=== PATIENT | female | born 1975 | race African-American/Black ===

== ENCOUNTER 2016-06-28 19:16 | Emergency (ER) | payer OTHER ==
--- NOTE | ~2016-06-28 | CR63 ---
[facility] A Service of [facility] & [facility] RADIOLOGY TEXT RESULTS PATIENT: MILIND BRICEÑO LOCATION: [facility] : 77 UNIT #: [id number] AGE: [address]: Ahmet Abdi MD SEX: F ORDER DR: [id number] [facility] [address] [place], [place] [address] [id number] MR#: [id number] Acc #: [id number] NAME: MILIND BRICEÑO : 1975 SEX: F STUDY DATE/TIME: 06/28/2016 19:46 UNIT: [facility] ROOM: STUDY DESCRIPTION: CR Chest 2 View Attending Physician: Ahmet Abdi M.D. Ordering Physician: Ahmet Abdi M.D. MEDICAL IMAGING REPORT This report is preliminary unless electronic signature is present EXAM Chest PA and lateral 06/28/2016 HISTORY Cough, chest pain and chest congestion for 2 weeks. Benign essential hypertension. FINDINGS PA and lateral examination of the chest upright shows a good expansion of the parenchyma with a normal distribution of the pulmonary vascularity. There is no indication of congestion, effusion, infiltrate, tumor, or nodular density. The pleural reflections and diaphragmatic contours are normal. The cardiac silhouette and mediastinal anatomy is within normal limits. IMPRESSION Normal chest. Dictated by... Silvano Lewis M.D. THIS IS AN ELECTRONICALLY VERIFIED REPORT Silvano Lewis M.D. at 06/29/2016 2:40 PM KRT/pcl TD: 06/28/2016 22:27 JOB #: [id number] MEDICAL IMAGING REPORT COPY
[~2016-06-28 19:16] MED LIST: AFRIN3 ML NS; ALB/IPRATROPIUM/1 E1 INH; AMOXICILLIN500 M1 PO; ANTIVERT PO; ASPIRIN81 M2 PO; AUGMENTIN PO; BENZONATATE PO; DOXYCYCLINE HY100 M3 PO; FIORICET 50-321 EACH PO; FLONASE16 GM; GLUCOPHAGE500 M1 PO; HCTZ PO; HYDROXYZINE HCL25 M1 PO; IBUPROFEN800 MG PO; K-DUR20 ME1 PO; KEFLEX500 MG PO; LISINOPRIL10 MG PO; LORTAB 5/500 TA1 TA1 PO; MOTRIN400 M1 PO; PHENERGAN W/CO120 ML PO; PREDNISONE10 MG PO; SUDAFED30 M1 PO; ZANTAC150 MG PO; ZITHROMAX PO
[2016-06-28 20:15] LABS: INFLUENZA A NEG (NEG); INFLUENZA B NEG (NEG)
== END 2016-06-28 21:29 | disposition home or self-care (01) ==
LOC: CED 19:16
PROVIDERS: Emergency Medicine
DX: J06.9 Acute upper respiratory infection, unspecified (principal); I10 Essential (primary) hypertension
CPT/HCPCS: 71020; 87651; 87804; 87880; 99283

== ENCOUNTER 2016-08-14 05:45 | Emergency (ER) | payer OTHER ==
--- NOTE | ~2016-08-14 | CR72 ---
[facility] A Service of [facility] & [facility] RADIOLOGY TEXT RESULTS PATIENT: MILIND BRICEÑO LOCATION: [facility] : 77 UNIT #: [id number] AGE: [address]: Jennifer Hernandez APRN SEX: F ORDER DR: [id number] [facility] [address] [place], [place] [address] [id number] E MR#: [id number] Acc #: [id number] NAME: MILIND BRICEÑO : 1975 SEX: F STUDY DATE/TIME: 08/14/2016 5:30 UNIT: [facility] ROOM: STUDY DESCRIPTION: CR Chest Single View Portable Attending Physician: Jennifer Hrenandez A.P.R.N. Ordering Physician: William Goldberg M.D. Primary Care Physician: Primary Care Physician No MEDICAL IMAGING REPORT This report is preliminary unless electronic signature is present EXAM AP portable chest, 08/14/2016 HISTORY 41-year-old female in the ED complaining of 3-day history of chest pain and shortness of air. TECHNIQUE AP portable upright chest x-ray. FINDINGS Heart size and pulmonary vascularity are within normal limits. The lungs appear clear. No visible pulmonary infiltrate or pleural effusion. No change since 06/28/2016. IMPRESSION Negative chest. Dictated by... Pierre Carroll M.D. THIS IS AN ELECTRONICALLY VERIFIED REPORT Pierre Carroll M.D. at 08/14/2016 9:59 PM GISELA/jimmy TD: 08/14/2016 12:30 JOB #: [id number] MEDICAL IMAGING REPORT COPY
--- NOTE | ~2016-08-14 | EKG ---
PATIENT: MILIND BRICEÑO UNIT #: [id number] Ventricular Rate: 92 BPM Atrial Rate: 92 BPM P-R Interval: 148 ms QRS Duration: 82 ms Q-T Interval: 352 ms QTC Calculation(Bezet): 435 ms P [place]: 33 degrees Calculated R [place]: 10 degrees Calculated T [place]: 15 degrees Diagnosis Line: Normal sinus rhythm Diagnosis Line: Cannot rule out Anterior infarct , age Diagnosis Line: undetermined Diagnosis Line: Abnormal ECG Diagnosis Line: When compared with ECG of 19-DEC-2015 03:21, Diagnosis Line: Nonspecific T wave abnormality now evident in Diagnosis Line: Lateral leads Diagnosis Line: Confirmed by ALFONZO CASTANEDA MD ([id number]) on Diagnosis Line: 08/14/2016 8:04:05 AM INTERPRETING MD: LEONEL VILLA
[2016-08-14 05:18] LABS: POC - CKMB <1.0 ng/mL (0.0-7.9); POC - TROPONIN <0.05 ng/mL (<=0.05)
[2016-08-14 05:45] LABS: BASOPHIL% 0.4 % (0-2.5); EOSINOPHIL# 0.1 X10e3 (0-0.7); EOSINOPHIL% 1.8 % (0.0-7.0); HEMATOCRIT 36.8 % (35.0-45.0); HEMOGLOBIN 11.9 gm/dL (12.0-16.0); LYMPHOCYTE# 2.2 X10e3 (1.0-3.5); MEAN CELL VOLUME 82.2 FL (83-96); MEAN CORPUSCULAR HEMOGLOBIN 26.6 PG (28-34); MEAN CORPUSCULAR HGB CONC 32.4 g/dL (30-36); MEAN PLATELET VOLUME 7.9 FL (6.5-11.5); MONOCYTE# 0.3 X10e3 (0-1.0); MONOCYTE% 4.7 % (3.0-12.0); NEUTROPHIL# 3.9 X10e3 (1.5-7.1); NEUTROPHIL% 60.1 % (40-75); PLATELET COUNT 330 X10e3 (140-420); RED BLOOD COUNT 4.48 X10e (3.90-5.30); RED CELL DISTRIBUTION WIDTH 14.5 % (11.0-15.5); WHITE BLOOD COUNT 6.6 X10e3 (4.0-10.5)
[2016-08-14 05:56] LABS: URINE SOURCE CLEAN CATCH
[2016-08-14 05:57] LABS: DIFF IND NO
[2016-08-14 06:01] LABS: PARTIAL THROMBOPLASTIN TIME 26.6 SECONDS (23.5-31.3); PROTHROMBIN TIME (PATIENT) 10.4 SECONDS (9.6-11.5)
[2016-08-14 06:01] LABS: URINE APPEARANCE CLOUDY; URINE BILIRUBIN NEG (NEG); URINE BLOOD 2+ (NEG); URINE COLOR YELLOW; URINE GLUCOSE NEG (NEG); URINE KETONE NEG (NEG); URINE LEUKOCYTE ESTERASE NEG (NEG); URINE NITRATE NEG (NEG); URINE PROTEIN NEG (NEG); URINE SPECIFIC GRAVITY 1.019 (1.003-1.035); URINE UROBILINOGEN 0.2 MG/DL (NEG)
[2016-08-14 06:03] LABS: CULTURE INDICATED? YES; URINE BACTERIA AUWI 1+ (NEGATIVE); URINE SQUAMOUS EPITHELIAL CELL FEW /[HPF]; UWBCS1 AUWI 0-2 (0-5)
[2016-08-14 06:14] LABS: ALBUMIN SERUM 3.7 g/dL (3.5-5.0); ALKALINE PHOSPHATASE 72 U/L (32-92); ALT (SGPT) 33 U/L (10-40); AST (SGOT) 21 U/L (10-42); BILIRUBIN, DIRECT 0.1 mg/dL (0.0-0.2); BILIRUBIN,INDIRECT 0.4 mg/dL (0.0-0.9); BILIRUBIN,TOTAL 0.5 mg/dL (0.2-2.0); BLOOD UREA NITROGEN 8 mg/dL (9-23); BUN/CREATININE RATIO 13.33; CALCIUM SERUM 8.6 mg/dL (8.4-10.2); CARBON DIOXIDE 26 mmol/L (22-31); CHLORIDE 100 mmol/L (100-111); CREATININE SERUM 0.6 mg/dL (0.6-1.4); GLOM FILT RATE Estimated ABOVE60 mL/min (>60); GLUCOSE FASTING 197 mg/dL (70-110); POTASSIUM 3.4 mmol/L (3.5-5.1); PROTEIN TOTAL SERUM 7.7 g/dL (6.0-8.3); SODIUM 131 mmol/L (135-145)
== END 2016-08-14 08:17 | disposition home or self-care (01) ==
LOC: CED 05:45
PROVIDERS: Emergency Medicine; Nurse Practitioner
DX: R07.89 Other chest pain (principal); I10 Essential (primary) hypertension
CPT/HCPCS: 36415; 71010; 80048; 80076; 81003; 82553; 82947; 84484; 84703; 85025; 85610; 85730; 87086; 93005; 96374; 99284; J1885

== ENCOUNTER 2016-12-07 02:47 | Emergency (ER) | payer OTHER | END 2016-12-07 04:07 | disposition home or self-care (01) | LOC: CED 02:47 | DX: J06.9 Acute upper respiratory infection, unspecified (principal); J32.9 Chronic sinusitis, unspecified; I10 Essential (primary) hypertension; E11.9 Type 2 diabetes mellitus without complications | CPT/HCPCS: 87651; 99283 ==

== ENCOUNTER 2017-01-14 06:34 | Emergency (ER) | payer OTHER ==
[~2017-01-14] VITALS: Ht 149.9 cm; Wt 89.8 kg
== END 2017-01-14 08:57 | disposition home or self-care (01) ==
LOC: CED 06:34
DX: J02.9 Acute pharyngitis, unspecified (principal); I10 Essential (primary) hypertension; E11.9 Type 2 diabetes mellitus without complications
CPT/HCPCS: 87651; 96372; 99283; J1100